=== PATIENT | male | born 1995 | race Caucasian/White ===

== ENCOUNTER → 2017-06-07 00:18 | Emergency (ER) | payer BC ==
[~2017-06-07 00:18] MED LIST: Acetaminophen TAB* 325 MG PO PRN; Al Hydrox/Mg Hydrox/Simet LIQ* 30 ML UDC PO PRN; Citalopram TAB* 20 MG PO SCH; Vitamin THERAPEUTIC TAB PO SCH; hydrOXYzine HCL TAB* 50 MG PO PRN
[2017-06-07 00:45] LABS: Hematocrit 49 % (42-52); Hemoglobin 16.8 g/dl (14.0-18.0); Mean Corpuscular HGB Conc 34 g/dl (31-36); Mean Corpuscular Hemoglobin 31 pg (27-31); Mean Corpuscular Volume 92 fL (80-94); Mean Platelet Volume 9 um3 (7.4-10.4); Red Blood Count 5.36 10^6/ul (4.0-5.4); Red Cell Distribution Width 14 % (10.5-15); White Blood Count 5.7 10^3/ul (3.5-10.8)
[2017-06-07 01:00] LABS: ALT 44 U/L (7-52); AST 29 U/L (13-39); Acetaminophen < 15 mcg/mL; Albumin 4.8 g/dL (3.2-5.2); Alcohol < 10 mg/dL (<10); Alkaline Phosphatase 60 U/L (34-104); Anion Gap 6 mmol/L (2-11); BUN/Creatinine Ratio 20.7 (8-20); Blood Urea Nitrogen 24 mg/dL (6-24); CO2 Carbon Dioxide 32 mmol/L (22-32); Calcium 9.9 mg/dL (8.6-10.3); Chloride 103 mmol/L (101-111); EGFR African American 104.3 (>60); EGFR Non-African American 81.1 (>60); Globulin 2.3 g/dL (2-4); Glucose 87 mg/dL (70-100); Potassium 3.9 mmol/L (3.5-5.0); Salicylate < 2.50 mg/dL (<30); Sodium 141 mmol/L (133-145); Total Protein 7.1 g/dL (6.4-8.9)
[2017-06-07 01:10] LABS: TSH (Thyroid Stimulating Horm) 3.17 mcIU/mL (0.34-5.60)
--- NOTE | 2017-06-07 01:34 | ED ---
Troy Patrick Rebecca, scribed for Kenneth You MD on 06/07/17 at 0046 . Psychiatric Complaint - HPI Summary HPI Summary: Pt is a 21 y/o M BIBA accompanied by police as a 941 who presents to ED c/o SIs. Sx have been intermittent for the past month, worsening today. Denies any attempt at suicide. EMS report that he had taken 2 extra Xanax today at 2200 and that he told his girlfriend he was considering taking medication to commit suicide. - History Of Current Complaint Chief Complaint: EDMentalHealth Hx Obtained From: Patient, EMS Onset/Duration: Still Present, Worse Since - Today Timing: Intermittent Episode Lasting Aggravating Factor(s): Nothing Alleviating Factor(s): Nothing Associated Signs And Symptoms: Positive: Negative Has Suicidal: Reports: Thoughts, With A Plan - Told his girlfriend he was considering taking medication - Allergies/Home Medications Allergies/Adverse Reactions: Allergies Allergy/AdvReac Type Severity Reaction Status Date / Time No Known Allergies Allergy Verified 06/07/17 00:36 Home Medications: Home Medications ALPRAZolam TAB* [Xanax TAB*] 1 mg PO TID PRN 06/07/17 [History Confirmed ] Escitalopram Oxalate [Lexapro 10 mg] 10 mg PO BID 06/07/17 [History Confirmed ] hydrOXYzine HCL TAB* [Atarax TAB 50 MG *] 50 mg PO TID PRN 06/07/17 [History Confirmed 06/07/17] PMH/Surg Hx/FS Hx/Imm Hx Previously Healthy: Yes Endocrine/Hematology History: Denies: Hx Diabetes Cardiovascular History: Denies: Hx Coronary Artery Disease Infectious Disease History: No Infectious Disease History: Denies: Traveled Outside the [place] in Last 30 Days - Family History Known Family History: Positive: Other - HLD - Social History Alcohol Use: Occasionally Substance Use Type: Reports: Marijuana Substance Use Comment - Amount & Last Used: on occassion Smoking Status (MU): Never Smoked Tobacco Review of Systems Negative: Fever Positive: Other - SIs All Other Systems Reviewed And Are Negative: Yes Physical Exam Triage Information Reviewed: Yes Vital Signs On Initial Exam: Initial Vitals Temp Pulse Resp BP Pulse Ox 97.0 F 52 16 127/78 97 06/07/17 00:33 06/07/17 00:33 06/07/17 00:33 06/07/17 00:33 06/07/17 00:33 Vital Signs Reviewed: Yes Appearance: Positive: Well-Appearing, No Pain Distress Skin: Positive: Warm Head/Face: Positive: Normal Head/Face Inspection ENT: Positive: Hearing grossly normal Neck: Positive: Supple Respiratory/Lung Sounds: Positive: Clear to Auscultation, Breath Sounds Present Cardiovascular: Positive: RRR Abdomen Description: Positive: Nontender, Soft Bowel Sounds: Positive: Present Musculoskeletal: Positive: Strength/ROM Intact Neurological: Positive: Alert, Oriented to Person Place, Time Psychiatric: Positive: Affect/Mood Appropriate - Morteza Coma Scale Coma Scale Total: 15 Diagnostics - Vital Signs Vital Signs Temp Pulse Resp BP Pulse Ox 06/07/17 00:33 97.0 F 52 16 127/78 97 - Laboratory Result Diagrams: 06/07/17 00:36 06/07/17 00:36 Lab Statement: Any lab studies that have been ordered have been reviewed, and results considered in the medical decision making process. Course/Dx - Course Assessment/Plan: Medically cleared for MHE at 0100. - Differential Dx/Clinical Impression Provider Diagnosis: Suicidal ideations - Physician Notifications Instructed by Provider To: Admit As Inpatient Discharge - Discharge Plan Condition: Fair Disposition: [facility]ATR[facility] FAC[place] [place] Referrals: No Primary Care Phys,NOPCP [Primary Care Provider] - The documentation as recorded by the Troy villafuerte Rebecca accurately reflects the service I personally performed and the decisions made by me, Kenneth You MD.
[2017-06-07 02:16] LABS: Urine Bilirubin Negative (Negative); Urine Glucose Negative (Negative); Urine Nitrite Negative (Negative)
[2017-06-07 02:29] LABS: Benzodiazepine Urine Screen Presumptive Positive (None Detect)
--- NOTE | 2017-06-07 14:35 | ED ---
Progress - Consult/PCP Time Called: 01:05 Course/Dx - Course Course Of Treatment: ACCEPTED BY ED PHYSICIAN, DR CEVALLOS, IN TRANSFER TO [facility]. - Diagnoses Provider Diagnoses: Suicidal ideations - Provider Notifications Instructed by Provider To: Admit As Inpatient
[2017-06-07 16:17] VITALS: BP 120/78
== END ==
LOC: ED 00:18
DX: R45.851 Suicidal ideations (principal)
CPT/HCPCS: 36415; 80053; 80307; 80320; 80329; 81003; 84443; 85025; 93005; 99282; G0480

== ENCOUNTER 2017-07-06 20:33 | Emergency (ER) | payer BC ==
[2017-07-06 21:23] LABS: Hematocrit 47 % (42-52); Hemoglobin 15.9 g/dl (14.0-18.0); Mean Corpuscular HGB Conc 34 g/dl (31-36); Mean Corpuscular Hemoglobin 31 pg (27-31); Mean Corpuscular Volume 91 fL (80-94); Mean Platelet Volume 8 um3 (7.4-10.4); Red Blood Count 5.11 10^6/ul (4.0-5.4); Red Cell Distribution Width 13 % (10.5-15)
[2017-07-06 21:25] LABS: Urine Bilirubin Negative (Negative); Urine Glucose Negative (Negative); Urine Nitrite Negative (Negative)
[2017-07-06 21:37] LABS: ALT 23 U/L (7-52); Albumin 4.5 g/dL (3.2-5.2); Alkaline Phosphatase 63 U/L (34-104); BUN/Creatinine Ratio 16.5 (8-20); Blood Urea Nitrogen 16 mg/dL (6-24); CO2 Carbon Dioxide 28 mmol/L (22-32); Calcium 8.9 mg/dL (8.6-10.3); Chloride 105 mmol/L (101-111); EGFR African American 128.2 (>60); EGFR Non-African American 99.7 (>60); Glucose 92 mg/dL (70-100); Sodium 140 mmol/L (133-145); Total Protein 6.5 g/dL (6.4-8.9)
[2017-07-06 21:48] LABS: Benzodiazepine Urine Screen None Detected (None Detect)
[2017-07-06 22:14] LABS: AST 20 U/L (13-39); Anion Gap 7 mmol/L (2-11); Potassium 3.6 mmol/L (3.5-5.0)
[2017-07-06 22:16] LABS: Acetaminophen < 15 mcg/mL; Alcohol < 10 mg/dL (<10); Salicylate < 2.50 mg/dL (<30)
[2017-07-06 22:32] LABS: TSH (Thyroid Stimulating Horm) 4.12 mcIU/mL (0.34-5.60)
[2017-07-06 23:37] VITALS: BP 109/65
--- NOTE | 2017-07-07 04:58 | ED ---
Troy Patrick Rebecca, scribed for Hector Mackenzie MD on 07/06/17 at 2103 . Psychiatric Complaint - HPI Summary HPI Summary: Pt is a 21 y/o M BIBA who presents to ED c/o depression with SIs. Denies any drug or alcohol use today. He was on Lexapro in the past which he stopped about 1 week ago. Pt confirms that he has been seen for similar symptoms in the past. - History Of Current Complaint Chief Complaint: EDMentalHealth Time Seen by Provider: 07/06/17 20:54 Hx Obtained From: Patient Onset/Duration: Still Present Character: Depressed Aggravating Factor(s): Nothing Alleviating Factor(s): Nothing Related History: Positive For: Prior Psychiatric Issues - Has been seen previously for simliar sx Has Suicidal: Reports: Thoughts - Allergies/Home Medications Allergies/Adverse Reactions: Allergies Allergy/AdvReac Type Severity Reaction Status Date / Time No Known Allergies Allergy Verified 06/07/17 00:36 Home Medications: Home Medications NK [No Home Medications Reported] 07/07/17 [History Confirmed 07/07/17] PMH/Surg Hx/FS Hx/Imm Hx Endocrine/Hematology History: Denies: Hx Diabetes Cardiovascular History: Denies: Hx Coronary Artery Disease Psychiatric History: Denies: Hx Eating Disorder Infectious Disease History: No Infectious Disease History: Denies: Traveled Outside the [place] in Last 30 Days - Family History Known Family History: Positive: Other - HLD - Social History Alcohol Use: Occasionally Substance Use Type: Reports: Marijuana Substance Use Comment - Amount & Last Used: on occassion Smoking Status (MU): Never Smoked Tobacco Review of Systems Negative: Fever Positive: Depressed - with SIs All Other Systems Reviewed And Are Negative: Yes Physical Exam - Summary Physical Exam Summary: General: well-appearing, no pain distress Skin: warm, color reflects adequate perfusion, dry Head: normal Eyes: EOMI, JOSÉ MIGUEL ENT: normal Neck: supple, nontender Respiratory: CTA, breath sounds present Cardiovascular: RRR Abdomen: soft, nontender Bowel: present Musculoskeletal: normal, strength/ROM intact Neurological: normal, sensory/motor intact, A&O x3 Psychological: sad affect Triage Information Reviewed: Yes Vital Signs On Initial Exam: Initial Vitals Temp Pulse Resp BP Pulse Ox 98.1 F 62 18 119/62 98 07/06/17 20:49 07/06/17 20:49 07/06/17 20:49 07/06/17 20:49 07/06/17 20:49 Vital Signs Reviewed: Yes Diagnostics - Vital Signs Vital Signs Temp Pulse Resp BP Pulse Ox 07/06/17 20:49 98.1 F 62 18 119/62 98 - Laboratory Lab Results: Lab Results 07/06/17 07/06/17 07/06/17 Range/Units 21:10 21:10 21:10 WBC 6.0 (3.5-10.8) 10^3/ul RBC 5.11 (4.0-5.4) 10^6/ul Hgb 15.9 (14.0-18.0) g/dl Hct 47 (42-52) % MCV 91 (80-94) fL MCH 31 (27-31) pg MCHC 34 (31-36) g/dl RDW 13 (10.5-15) % Plt Count 134 L (150-450) 10^3/ul MPV 8 (7.4-10.4) um3 Neut % (Auto) 53.3 (38-83) % Lymph % (Auto) 34.6 (25-47) % [place] % (Auto) 9.0 (1-9) % Eos % (Auto) 2.1 (0-6) % Baso % (Auto) 1.0 (0-2) % Absolute Neuts (auto) 3.2 (1.5-7.7) 10^3/ul Absolute Lymphs (auto) 2.1 (1.0-4.8) 10^3/ul Absolute Monos (auto) 0.5 (0-0.8) 10^3/ul Absolute Eos (auto) 0.1 (0-0.6) 10^3/ul Absolute Basos (auto) 0.1 (0-0.2) 10^3/ul Absolute Nucleated RBC 0 10^3/ul Nucleated RBC % 0 Sodium 140 (133-145) mmol/L Potassium 3.6 (3.5-5.0) mmol/L Chloride 105 (101-111) mmol/L Carbon Dioxide 28 (22-32) mmol/L Anion Gap 7 (2-11) mmol/L BUN 16 (6-24) mg/dL Creatinine 0.97 (0.67-1.17) mg/dL Est GFR ( Amer) 128.2 (>60) Est GFR (Non-Af Amer) 99.7 (>60) BUN/Creatinine Ratio 16.5 (8-20) Glucose 92 (70-100) mg/dL Calcium 8.9 (8.6-10.3) mg/dL Total Bilirubin 0.30 (0.2-1.0) mg/dL AST 20 (13-39) U/L ALT 23 (7-52) U/L Alkaline Phosphatase 63 (34-104) U/L Total Protein 6.5 (6.4-8.9) g/dL Albumin 4.5 (3.2-5.2) g/dL Globulin 2.0 (2-4) g/dL Albumin/Globulin Ratio 2.3 (1-3) TSH 4.12 (0.34-5.60) mcIU/mL Urine Color Urine Appearance Urine pH (5-9) Ur Specific [place] (1.010-1.030) Urine Protein (Negative) Urine Ketones (Negative) Urine Blood (Negative) Urine Nitrate (Negative) Urine Bilirubin (Negative) Urine Urobilinogen (Negative) Ur Leukocyte Esterase (Negative) Urine Glucose (Negative) Salicylates < 2.50 (<30) mg/dL Urine Opiates Screen None detected (None Detect) Acetaminophen < 15 mcg/mL Ur Barbiturates Screen None detected (None Detect) Ur Phencyclidine Scrn None detected (None Detect) Ur Amphetamines Screen None detected (None Detect) U Benzodiazepines Scrn None detected (None Detect) Urine Cocaine Screen None detected (None Detect) U Cannabinoids Screen None detected (None Detect) Serum Alcohol < 10 (<10) mg/dL 07/06/17 Range/Units 21:10 WBC (3.5-10.8) 10^3/ul RBC (4.0-5.4) 10^6/ul Hgb (14.0-18.0) g/dl Hct (42-52) % MCV (80-94) fL MCH (27-31) pg MCHC (31-36) g/dl RDW (10.5-15) % Plt Count (150-450) 10^3/ul MPV (7.4-10.4) um3 Neut % (Auto) (38-83) % Lymph % (Auto) (25-47) % [place] % (Auto) (1-9) % Eos % (Auto) (0-6) % Baso % (Auto) (0-2) % Absolute Neuts (auto) (1.5-7.7) 10^3/ul Absolute Lymphs (auto) (1.0-4.8) 10^3/ul Absolute Monos (auto) (0-0.8) 10^3/ul Absolute Eos (auto) (0-0.6) 10^3/ul Absolute Basos (auto) (0-0.2) 10^3/ul Absolute Nucleated RBC 10^3/ul Nucleated RBC % Sodium (133-145) mmol/L Potassium (3.5-5.0) mmol/L Chloride (101-111) mmol/L Carbon Dioxide (22-32) mmol/L Anion Gap (2-11) mmol/L BUN (6-24) mg/dL Creatinine (0.67-1.17) mg/dL Est GFR ( Amer) (>60) Est GFR (Non-Af Amer) (>60) BUN/Creatinine Ratio (8-20) Glucose (70-100) mg/dL Calcium (8.6-10.3) mg/dL Total Bilirubin (0.2-1.0) mg/dL AST (13-39) U/L ALT (7-52) U/L Alkaline Phosphatase (34-104) U/L Total Protein (6.4-8.9) g/dL Albumin (3.2-5.2) g/dL Globulin (2-4) g/dL Albumin/Globulin Ratio (1-3) TSH (0.34-5.60) mcIU/mL Urine Color Yellow Urine Appearance Clear Urine pH 6.0 (5-9) Ur Specific [place] 1.030 (1.010-1.030) Urine Protein Negative (Negative) Urine Ketones Trace H (Negative) Urine Blood Negative (Negative) Urine Nitrate Negative (Negative) Urine Bilirubin Negative (Negative) Urine Urobilinogen Negative (Negative) Ur Leukocyte Esterase Negative (Negative) Urine Glucose Negative (Negative) Salicylates (<30) mg/dL Urine Opiates Screen (None Detect) Acetaminophen mcg/mL Ur Barbiturates Screen (None Detect) Ur Phencyclidine Scrn (None Detect) Ur Amphetamines Screen (None Detect) U Benzodiazepines Scrn (None Detect) Urine Cocaine Screen (None Detect) U Cannabinoids Screen (None Detect) Serum Alcohol (<10) mg/dL Result Diagrams: 07/06/17 21:10 07/06/17 21:10 Lab Statement: Any lab studies that have been ordered have been reviewed, and results considered in the medical decision making process. Course/Dx - Course Assessment/Plan: Medically cleared for MHE at 2259. Pt medications reviewed this visit. ADMIT MHU - Differential Dx/Clinical Impression Provider Diagnosis: Mental health problem Discharge - Discharge Plan Condition: Stable Disposition: [facility]IATRIC FACILITY[place] [place] Referrals: [facility] [place] [Primary Care Provider] - The documentation as recorded by the Troy villafuerte Rebecca accurately reflects the service I personally performed and the decisions made by me, Hector Mackenzie MD.
== END 2017-07-07 18:59 ==
LOC: ED 20:33
DX: F32.9 Major depressive disorder, single episode, unspecified (principal); Z00.8 Encounter for other general examination; T14.91XA Suicide attempt, initial encounter
CPT/HCPCS: 36415; 80053; 80307; 80320; 80329; 81003; 84443; 85025; 93005; 99284; G0480